=== PATIENT | female | born 1990 | race Caucasian/White ===

== ENCOUNTER 2019-04-08 09:05 | Inpatient (IN) | payer MEDICAID, SELFPAY ==
--- NOTE | 2019-04-03 12:31 | PCM.HP.BLA ---
History and Physical Date of Admission: 04/08/19 Monica Ramírez Griggs Physician [facility] H&P Signed Encounter Date: 04/03/2019 Expand All Collapse All Hide copied text Hover for details Template added by Monica Ramírez Griggs at 04/03/2019 12:12 PM Added by Monica Ramírez Griggs at 04/03/2019 12:12 PM Template added by Monica Ramírez Griggs at 04/03/2019 12:12 PM Template added by Monica Ramírez Griggs at 04/03/2019 12:12 PM Template added by Monica Ramírez Griggs at 04/03/2019 12:12 PM Template added by Monica Ramírez Griggs at 04/03/2019 12:12 PM Template added by Monica Ramírez Griggs at 04/03/2019 12:12 PM Template added by Monica Ramírez Griggs at 04/03/2019 12:12 PM Added by Monica Ramírez Griggs at 04/03/2019 12:12 PM Added by Monica Ramírez Griggs at 04/03/2019 12:12 PM Added by Monica Ramírez Griggs at 04/03/2019 12:12 PM Added by Monica Ramírez Griggs at 04/03/2019 12:12 PM Template added by Monica Ramírez Griggs at 04/03/2019 12:12 PM Added by Monica Ramírez Griggs at 04/03/2019 12:12 PM Added by Monica Ramírez Griggs at 04/03/2019 12:12 PM Added by Monica Ramírez Griggs at 04/03/2019 12:12 PM Added by Monica Ramírez Griggs at 04/03/2019 12:12 PM Added by Monica Ramírez Griggs at 04/03/2019 12:12 PM Added by Monica Ramírez Griggs at 04/03/2019 12:12 PM Added by Monica Ramírez Griggs at 04/03/2019 12:12 PM Added by Monica Griggs at 04/03/2019 12:12 PM Template added by Monica Griggs at 04/03/2019 12:12 PM Template added by Monica Griggs at 04/03/2019 12:12 PM Rita Olea is a 28 year old female who presents for?preop visit for repeat section. ?Patient declines tubal ligation at the time of section. ?Patient denies any concerns today. ?She denies any vaginal bleeding, leaking fluid. ?Patient reports good movement. ? PAST MEDICAL HISTORY PAST MEDICAL HISTORY Diagnosis Date ? ADD (attention deficit disorder) ? ? ADHD ? ? Anxiety ? ? Depression ? ? elevated TSH ? ? Trauma ? ? PAST SURGICAL HISTORY PAST SURGICAL HISTORY Procedure Laterality Date ? SECTION HX ? 2013 ? FAMILY HISTORY FAMILY HISTORY Problem Relation Age of Onset ? No Known Problems Mother ? ? No Known Problems Father ? ? No Known Problems Sister ? ? No Known Problems Brother ? ? Alzheimer's Disease Maternal Grandmother ? ? Heart Maternal Grandfather ? ? Depression Maternal Grandfather ? ? Diabetes Maternal Grandfather ? ? Psychiatry Maternal Grandfather ?OCD ? No Known Problems Paternal Grandmother ? ? No Known Problems Paternal Grandfather ? ? SOCIAL HISTORY Social History ? Tobacco Use ? Smoking status: Never Smoker ? Smokeless tobacco: Never Used Substance Use Topics ? Alcohol use: No ? Drug use: No ? CURRENT MEDICATIONS Current Outpatient Medications Medication Sig ? levothyroxine (SYNTHROID) 75 mcg tablet Take 1 tablet by mouth once daily. ? Gmacgkge-Rk-Mfp-Fe-FA ( VITAMIN) tab Take 1 tablet by mouth. ? No current facility-administered medications for this visit.? ? Allergies As of Date: 04/03/2019 Allergen ?Noted ?Reaction SEASONAL ALLERGIES ?09/06/2018 ?Other: See Comments ? Fully Assessed ?04/03/2019 ? ? REVIEW OF SYSTEMS Abdomen:?no pain? Bladder:?no dysuria?.. Expanded ROS:?GENERAL:?No weight loss, malaise or fevers Allergies and current medication updated:Yes ? EXAM:?BP 120/72 Wt 211 lb (95.7kg) LMP 07/12/2018? GENERAL:?pleasant,??female in no apparent distress HEENT:?Normocephalic and atraumatic NECK:?full range of motion DERMATOLOGY:?Normal, without lesions, non-icteric and non-hirsute ABDOMEN:?gravid, non tender NEURO:?alert and oriented x3,exam grossly non-focal EXTREMITIES:?normal ? ASSESSMENT AND PLAN:?? Encounter Diagnosis ? ? ICD-10-CM ? 1. Visit for screening Z36.9 URINE OB DIP B/O 2. 38 weeks gestation of Z3A.38 URINE OB DIP B/O ? 3. Consent signed today for repeat c/s with Dr. Rust on 04/08/19 4.?Pt has been counseled on risks/benefits and alternatives of surgery including but not limited to anesthesia, bleeding, infection, injury to pelvic structures including bowel, bladder, ureters and vessels. ?Pt wishes to proceed with surgery at this time. ? ? Monica Huerta MD ?
[2019-04-08] VITALS (17 sets, daily range): BP systolic 116–166; BP diastolic 65–107; PULSE 70–100; RESP 16–20; TEMP 36.1–37.1; O2SAT 96–100; BMI 41.4
[2019-04-08] MEDS: Lactated Ringers 1,000 ML 999 ML IV (09:25)
[2019-04-08 10:01] LABS: Absolute Lymphocyte Count 2.62 X10^3/uL (0.83-4.51); Absolute Neutrophil Count 6.9 X10^3/uL (2.0-7.7); Basophil# 0.03 X10^3/uL; Basophil% 0.3 % (0-1); Eosinophil# 0.19 X10^3/uL; Eosinophils% 1.8 % (0-5); Hematocrit 36.3 % (37-47); Hemoglobin 12.1 g/dL (12.0-15.0); Lymphocyte # 2.62 X10^3/ul (4.0); Lymphocyte % 24.9 % (19-41); Mean Corp Hgb Conc 33.3 g/dL (32-36); Mean Corpuscular Hgb 29.1 pg (27.0-32.0); Mean Corpuscular Volume 87.3 fL (81-99); Mean Platelet Vol. 12.5 fl (6.2-12.0); Monocyte# 0.78 X10^3/uL; Monocyte% 7.4 % (0-10); NRBC Flagged by Analyzer 0 % (0-5); Neutrophil # 6.85 X10^3/uL (2.7-7.7); Neutrophil % 65.2 % (47-70); POSITIVE COUNT YES; Platelet Count 225 K/mm3 (150-450); RBC Distribution Width CV 12.4 % (11.6-14.6); Red Blood Count 4.16 M/mm3 (4.2-5.4); White Blood Count 10.5 K/mm3 (4.4-11.0)
[2019-04-08 10:08] LABS: Differential Indicated SCAN CRITERIA MET
[2019-04-08 10:26] LABS: Platelet Estimate ADEQUATE (ADEQ); Platelet Morphology LARGE
[2019-04-08] MEDS: Lactated Ringers 1,000 ML 150 ML IV (10:47)
[2019-04-08] MEDS: Sodium Citrate/Citric Acid 30 ML UDC PO (12:11)
[2019-04-08] MEDS: Cefazolin 2 GM in 0.9% Normal Saline 100 ML IV (12:18)
--- NOTE | 2019-04-08 13:32 | PCM.OPRPT ---
Problem List (1) 39 weeks gestation of Status: Acute (2) History of delivery Status: Acute Report of Operation Date of Procedure: 04/08/19 Pre-Operative Diagnosis: 39 week gestation, history of prior section Post-Operative Diagnosis: As above Surgery/Procedure Performed:: RLTCS via pfannenstiel incision Description of Surgical Findings:: Normal-appearing uterus, bilateral fallopian tubes, bilateral ovaries. Viable in cephalic presentation. Clear fluid. Intact and normal-appearing placenta with a three-vessel cord. Moderate amount of adhesions of the bladder to the peritoneum as well as to the anterior surface of the uterus. Other than the bladder adhesions, very minimal to no adhesions. Type of Anesthesia:: Spinal Special Medications: None Specimen's removed: Placenta Drains: Pederson Estimated Blood Loss (mL): 700 Fluids Replaced: See I/O Description of Procedure: Patient was taken to the operating room where spinal anesthesia was found to be adequate. She was prepped and draped in the usual sterile fashion in dorsal position with leftward tilt. A Pfannenstiel skin incision was made with a scalpel and this incision was carried to the down to the underlying layer of fascia. The fascia was incised in the midline and extended laterally. The fascia was then dissected off of the rectus muscles with both blunt and sharp dissection. The peritoneum was entered carefully with sharp dissection. The peritoneum was extended with good visualization of the bladder. The bladder was noted to be densely adhered to the anterior surface of the uterus and to the peritoneum. A low transverse incision was made on the uterus. Membranes were ruptured for clear fluid. was delivered in vertex presentation with use of a vacuum, as the was unable to be delivered without the vacuum. The vacuum was applied and used with very gentle traction for one pull to deliver the head, and then the vacuum was released and removed. The body of the infant was delivered without force or delay. Cord was clamped and cut after 60 sec delay. was handed off to the nursery staff. The placenta was delivered with manual extraction and noted to be normal and intact. The uterus was exteriorized from the abdomen. The uterus was cleared of all clot and debris. The uterus was closed in a running locked fashion using Vicryl. Several additional [id number]-wx-[id number] sutures were placed for hemostasis. Normal bilateral adnexa were noted. The uterus was then placed back into the abdomen. Again hemostasis was noted. The peritoneum was closed in a running fashion with Vicryl. The fascia was closed in a running fashion with Vicryl. The subcutaneous space was irrigated. Subcutaneous space was made hemostatic using the Bovie cautery. The subcutaneous space was then closed off with Vicryl in a running fashion. The skin was closed in subcuticular fashion. Instrument counts were correct and patient was taken to the recovery room in stable condition. Grafts/Implants Used: None - Complications None - Admit VTE Documentation VTE Present on Admission: No VTE Mechan Device Prophylaxis: SCD's Delivery Classification: Scheduled Gestational age: 39 weeks Type of Anesthesia:: Spinal Indications for : Repeat Elective Amniotic Membrane Rupture Type: Artificial Amniotic Fluid Description: Clear Drain: Pederson to straight drain Cord Entanglement: None Cord Vessel Description: 3 Vessels Delayed cord clamping: Yes
[2019-04-08] MEDS: Oxytocin 30 units/NS 500 ml 30 UNITS/500 ML IV.SOLN 167 UNITS IV (13:58)
[2019-04-08] MEDS: Lactated Ringers 1,000 ML 100 ML IV (17:04)
[2019-04-08] MEDS: Ondansetron 4 MG/2 ML Vial IV (17:21)
[2019-04-08] MEDS: Ketorolac 30 MG/ML Syringe IV (19:57)
[2019-04-09] VITALS (12 sets, daily range): BP systolic 119–141; BP diastolic 63–86; PULSE 70–110; RESP 16–18; TEMP 36.7–37.1; O2SAT 96–99
[2019-04-09] MEDS: Lactated Ringers 1,000 ML 100 ML IV (01:47)
[2019-04-09] MEDS: Ketorolac 30 MG/ML Syringe IV ×2 (01:48→07:48)
[2019-04-09 05:33] LABS: Hematocrit 29.5 % (37-47); Hemoglobin 9.8 g/dL (12.0-15.0); Mean Corp Hgb Conc 33.2 g/dL (32-36); Mean Corpuscular Hgb 29.7 pg (27.0-32.0); Mean Corpuscular Volume 89.4 fL (81-99); Mean Platelet Vol. 11.7 fl (6.2-12.0); Platelet Count 177 K/mm3 (150-450); RBC Distribution Width CV 12.3 % (11.6-14.6); RBC Distribution Width SD 39.6 fl (35.1-43.9); White Blood Count 9.8 K/mm3 (4.4-11.0)
[2019-04-09] MEDS: Levothyroxine 75 MCG Tablet PO (06:24)
[2019-04-09] MEDS: 0.9% Saline Lock 10 ML Syringe IV ×2 (07:48→14:06)
[2019-04-09] MEDS: Enoxaparin 40 MG/0.4 ML Syringe SC (12:53)
--- NOTE | 2019-04-09 13:58 | PCM.PN.OB ---
Patient Problems: Active and Suspected Problems 39 weeks gestation of (Acute) History of delivery (Acute) Subjective: Pain well controlled, average lochia. Tolerating regular diet. No nausea or vomiting. - Physical Exam Vitals/I&O's: Vital Signs Temp Pulse Resp BP Pulse Ox 98.7 F 90 16 141/86 H 96 04/09/19 11:44 04/09/19 11:44 04/09/19 11:44 04/09/19 11:44 04/09/19 11:44 Oxygen Delivery Method Room Air Weight: 96.218 kg Body Mass Index (BMI) 41.4 Intake and Output for Last 24 Hours 04/07/19 04/08/19 04/09/19 23:59 23:59 23:59 Intake Total 2832.93 / 2832.93 2276.67 / 2276.67 Output Total 500 / 500 1000 / 1000 Balance 2332.93 / 2332.93 1276.67 / 1276.67 General: Alert, Cooperative, No apparent distress Abdomen: Soft, Non-Distended, Obese, Tender - Appropriately Extremities: Edema - 1+ Skin: Incision - The bandage is clean dry and intact Laboratory Results 04/09/19 05:15: WBC 9.8, RBC 3.30 L, Hgb 9.8 L, Hct 29.5 L, MCV 89.4, MCH 29.7, MCHC 33.2, RDW Std Deviation 39.6, RDW Coeff of Jacquelyn 12.3, Plt Count 177, MPV 11.7 Current Medications Acetaminophen (Tylenol) 1,000 mg PO Q8H PRN PRN Reason: Pain Score 1-3/10 Bisacodyl (Dulcolax) 10 mg RECTAL UD PRN PRN Reason: If no BM Enoxaparin Sodium (Lovenox) 40 mg SC DAILY@1300 [facility] Last Admin: 04/09/19 12:53 Dose: 40 mg Documented by: Hydrocortisone (Hytone) 1 applic TOPICAL TID PRN PRN; Protocol PRN Reason: Discomfort Naloxone HCl 4 mg/ Dextrose 504 mls @ 0 mls/hr IV .Q0M PRN; Protocol PRN Reason: Respiratory depression Ketorolac Tromethamine (Toradol) 30 mg IV Q6H FOREIGN Stop: 04/10/19 14:01 Last Admin: 04/09/19 07:48 Dose: 30 mg Documented by: Levothyroxine Sodium (Synthroid) 75 mcg PO DAILY@0600 [facility] Last Admin: 04/09/19 06:24 Dose: 75 mcg Documented by: Methylergonovine Maleate (Methergine) 0.2 mg IM X1 PRN PRN Reason: Uterine Atony Naloxone HCl (Narcan) 0.02 mg IV Q1M PRN PRN Reason: RR <10 and pt unresponsive Ondansetron HCl (Zofran) 4 mg IV Q4H PRN PRN PRN Reason: Nausea Last Admin: 04/08/19 17:21 Dose: 4 mg Documented by: Ondansetron HCl (Zofran Odt) 4 mg PO Q4H PRN PRN PRN Reason: ITCHING Stop: 04/09/19 14:31 Oxycodone HCl (Oxyir) 5 - 10 mg PO Q4H PRN PRN PRN Reason: Pain Score 4-10/10 Prochlorperazine Edisylate (Compazine Iv) 10 mg IV Q6H PRN PRN PRN Reason: NAUSEA Senna/Docusate Sodium (Senokot-S, Ember-Colace) 0 tablet PO DAILY PRN PRN Reason: Constipation Simethicone (Mylicon) 80 mg PO PCHS PRN PRN Reason: Indigestion/stomach pain Sodium Chloride () 5 - 15 ml IV UD PRN PRN Reason: SALINE FLUSH Last Admin: 04/09/19 07:48 Dose: 10 ml Documented by: Medical Necessity - Tobacco Use Smoking Status: Never smoker Assessment/Plan All Active Problems 39 weeks gestation of (Acute) History of delivery (Acute) Postoperative day #1 status post repeat section. Patient is doing well. Routine care. Patient will likely elect to be discharged home tomorrow.
--- NOTE | 2019-04-09 15:46 | NURSING ---
pt.'s IV infiltrated and dc'd, 1400 toradol unable to be given, spoke to Dr. Delacruz ordered patient to continue pain control maintenance with aleve with oxycodone for breakthrough pain,
[2019-04-09] MEDS: Acetaminophen 500 MG Tablet 1000 MG PO (16:07)
[2019-04-09] MEDS: Naproxen 250 MG Tablet PO (19:42)
[2019-04-10 01:15] VITALS: BP 126/75; PULSE 85; RESP 18; TEMP 37.1
[2019-04-10] MEDS: Levothyroxine 75 MCG Tablet PO (05:39)
[2019-04-10] MEDS: Acetaminophen 500 MG Tablet 1000 MG PO (07:37)
[2019-04-10 07:57] VITALS: BP 126/82; PULSE 75; RESP 18; TEMP 37.1
--- NOTE | 2019-04-10 08:10 | PCM.PN.OB ---
Patient Problems: Active and Suspected Problems 39 weeks gestation of (Acute) History of delivery (Acute) Subjective: Pt doing well. Pain well controlled. No lightheadedness, dizziness, CP, SOB, leg pain. Lochia normal. Bottle feeding. Tolerating reg diet. No difficulty with urination - Physical Exam Vitals/I&O's: Vital Signs Temp Pulse Resp BP Pulse Ox 98.8 F 75 18 126/82 H 96 04/10/19 07:57 04/10/19 07:57 04/10/19 07:57 04/10/19 07:57 04/09/19 11:44 Oxygen Delivery Method Room Air Weight: 212 lb 2 oz Body Mass Index (BMI) 41.4 Intake and Output for Last 24 Hours 04/08/19 04/09/19 04/10/19 23:59 23:59 23:59 Intake Total 2832.93 / 2832.93 2276.67 / 2276.67 Output Total 500 / 500 1000 / 1000 Balance 2332.93 / 2332.93 1276.67 / 1276.67 General: Alert, No apparent distress HEENT: Atraumatic Lungs: - - No increased resp effort Abdomen: Soft, Non Tender, - - FF Extremities: No Calf Tenderness, Edema - Trace edema bilaterally Skin: No rashes Neurological: Neuro grossly intact Psych/Mental Status: Normal Affect, Appropriate Current Medications Acetaminophen (Tylenol) 1,000 mg PO Q8H PRN PRN Reason: Pain Score 1-3/10 Last Admin: 04/10/19 07:37 Dose: 1,000 mg Documented by: Bisacodyl (Dulcolax) 10 mg RECTAL UD PRN PRN Reason: If no BM Enoxaparin Sodium (Lovenox) 40 mg SC DAILY@1300 [facility] Last Admin: 04/09/19 12:53 Dose: 40 mg Documented by: Hydrocortisone (Hytone) 1 applic TOPICAL TID PRN PRN; Protocol PRN Reason: Discomfort Naloxone HCl 4 mg/ Dextrose 504 mls @ 0 mls/hr IV .Q0M PRN; Protocol PRN Reason: Respiratory depression Levothyroxine Sodium (Synthroid) 75 mcg PO DAILY@0600 [facility] Last Admin: 04/10/19 05:39 Dose: 75 mcg Documented by: Methylergonovine Maleate (Methergine) 0.2 mg IM X1 PRN PRN Reason: Uterine Atony Naloxone HCl (Narcan) 0.02 mg IV Q1M PRN PRN Reason: RR <10 and pt unresponsive Naproxen (Naprosyn) 250 - 500 mg PO Q6H PRN PRN PRN Reason: PAIN 1-3 Last Admin: 04/09/19 19:42 Dose: 500 mg Documented by: Ondansetron HCl (Zofran) 4 mg IV Q4H PRN PRN PRN Reason: Nausea Last Admin: 04/08/19 17:21 Dose: 4 mg Documented by: Oxycodone HCl (Oxyir) 5 - 10 mg PO Q4H PRN PRN PRN Reason: Pain Score 4-10/10 Prochlorperazine Edisylate (Compazine Iv) 10 mg IV Q6H PRN PRN PRN Reason: NAUSEA Senna/Docusate Sodium (Senokot-S, Ember-Colace) 0 tablet PO DAILY PRN PRN Reason: Constipation Simethicone (Mylicon) 80 mg PO PCHS PRN PRN Reason: Indigestion/stomach pain Sodium Chloride () 5 - 15 ml IV UD PRN PRN Reason: SALINE FLUSH Last Admin: 04/09/19 14:06 Dose: 10 ml Documented by: Medical Necessity - Tobacco Use Smoking Status: Never smoker Assessment/Plan All Active Problems 39 weeks gestation of (Acute) History of delivery (Acute) POD#2 s/p RLTCS - Pt doing well and requests to go home - Bottle feeding - D/c home w/ follow up in office next week
--- NOTE | 2019-04-10 08:14 | DCINST_ITS ---
Discharge Diet: No Restrictions Discharge Activity: Return to Normal Activity, May Not Drive, May Shower May resume sexual activity in: 6 weeks Weight Bearing Status: Weight bearing as tolerated Lifting Restrictions: No lifting greater than 20 pounds Call your doctor if your incision/area has: Sudden Increased Bleeding, Increased Pain/ Swelling, Increased Redness, Foul Smelling Discharge, Swelling at the incision site Call your doctor if you observe: Fever of 101 or Higher, Inability to urinate, Inability to have a bowel movement, Using more than one pad per hour, Shortness of breath, Dizziness, Fainting spells, Chest pain, Increased palpitations (irregular heartbeat), Calf discomfort, Uncontrolled pain Suture Line Care: Avoid Pulling/Pushing, Avoid Pinching/Bending Cleanse incision/area with: Soap & Water Instructions: After a Additional Instructions: If you experience any of the following, contact your healthcare provider. * Bleeding that soaks a pad every hour for 2 hours * Fever 100.4 or higher * Unrelieved incision or abdominal pain * Swelling, redness, discharge or bleeding from your incision or episiotomy site * Your incision begins to separate * Problems urinating (including inability to urinate or burning while urinating). * Visual changes * Severe headache * Flu-like symptoms * Pain or redness in one of both of your breasts * Pain, warmth, tenderness or swelling in your legs, especially the calf area * Frequent nausea and vomiting * Symptoms of depression or anxiety If you experience any of the following, call 911 or go to the nearest Emergency Room. * Chest pain * Problems breathing * Seizure activity * Partial or complete paralysis of a body part, slurred speech, weakness or drooping of the face, or a sudden inability to walk or hold your balance Allergies/Adverse Reactions: Allergies No Known Allergies Allergy (Verified 04/08/19 09:50) Medications to take at Discharge Levothyroxine [Synthroid] 75 mcg PO DAILY 04/08/19 Vits [Prenatabs FA] 1 tab PO DAILY 04/08/19 Oxycodone HCl/Acetaminophen [Percocet 5/325] 1 tab PO Q6H PRN PRN 7 Days #15 tab 04/10/19 The following prescriptions were given: Oxycodone HCl/Acetaminophen [Percocet 5/325] 1 tab PO Q6H PRN PRN 7 Days #15 tab PRN Reason: Pain Score 6-10/10 Prescription Printed Follow-Up: Call to make an appointment with your doctor for an incision check in 1-2 weeks. You will also need a 6 week post- follow up appointment. Test results from this visit will be discussed in further detail at your follow- up appointment, if applicable. When: 1 week for incision check Primary Care Physician: Care Physician,No Primary [Primary Care Provider] -
--- NOTE | 2019-04-10 08:15 | PCM.DC.SUM ---
Discharge Date and Diagnosis - Problem List Patient Problems: Active and Suspected Problems 39 weeks gestation of (Acute) History of delivery (Acute) Date of Admission: 04/08/19 Date of Discharge: 04/10/19 - Primary Discharge Diagnosis Active and Suspected Problems 39 weeks gestation of (Acute) History of delivery (Acute) Hospital Course and Treatment Operations: - - repeat section Summary of Care Provided: The patient is a 28 year old F who presented for scheduled repeat section. See operative note for details of section. Postoperatively her pain was controlled, she was tolerating a regular diet, was ambulating without difficulty, she was voiding without difficulty. She was bottlefeeding. She was discharged home on postoperative day 2 per her request in good condition. Patient Problems: Active and Suspected Problems 39 weeks gestation of (Acute) History of delivery (Acute) - Physical Exam Vitals/I&O's: Vital Signs Temp Pulse Resp BP Pulse Ox 98.8 F 75 18 126/82 H 96 04/10/19 07:57 04/10/19 07:57 04/10/19 07:57 04/10/19 07:57 04/09/19 11:44 Oxygen Delivery Method Room Air Weight: 212 lb 2 oz Body Mass Index (BMI) 41.4 Intake and Output for Last 24 Hours 04/08/19 04/09/19 04/10/19 23:59 23:59 23:59 Intake Total 2832.93 / 2832.93 2276.67 / 2276.67 Output Total 500 / 500 1000 / 1000 Balance 2332.93 / 2332.93 1276.67 / 1276.67 Current Medications Acetaminophen (Tylenol) 1,000 mg PO Q8H PRN PRN Reason: Pain Score 1-3/10 Last Admin: 04/10/19 07:37 Dose: 1,000 mg Documented by: Bisacodyl (Dulcolax) 10 mg RECTAL UD PRN PRN Reason: If no BM Enoxaparin Sodium (Lovenox) 40 mg SC DAILY@1300 [facility] Last Admin: 04/09/19 12:53 Dose: 40 mg Documented by: Hydrocortisone (Hytone) 1 applic TOPICAL TID PRN PRN; Protocol PRN Reason: Discomfort Naloxone HCl 4 mg/ Dextrose 504 mls @ 0 mls/hr IV .Q0M PRN; Protocol PRN Reason: Respiratory depression Levothyroxine Sodium (Synthroid) 75 mcg PO DAILY@0600 [facility] Last Admin: 04/10/19 05:39 Dose: 75 mcg Documented by: Methylergonovine Maleate (Methergine) 0.2 mg IM X1 PRN PRN Reason: Uterine Atony Naloxone HCl (Narcan) 0.02 mg IV Q1M PRN PRN Reason: RR <10 and pt unresponsive Naproxen (Naprosyn) 250 - 500 mg PO Q6H PRN PRN PRN Reason: PAIN 1-3 Last Admin: 04/09/19 19:42 Dose: 500 mg Documented by: Ondansetron HCl (Zofran) 4 mg IV Q4H PRN PRN PRN Reason: Nausea Last Admin: 04/08/19 17:21 Dose: 4 mg Documented by: Oxycodone HCl (Oxyir) 5 - 10 mg PO Q4H PRN PRN PRN Reason: Pain Score 4-10/10 Prochlorperazine Edisylate (Compazine Iv) 10 mg IV Q6H PRN PRN PRN Reason: NAUSEA Senna/Docusate Sodium (Senokot-S, Ember-Colace) 0 tablet PO DAILY PRN PRN Reason: Constipation Simethicone (Mylicon) 80 mg PO PCHS PRN PRN Reason: Indigestion/stomach pain Sodium Chloride () 5 - 15 ml IV UD PRN PRN Reason: SALINE FLUSH Last Admin: 04/09/19 14:06 Dose: 10 ml Documented by: Discharge Diet: No Restrictions Discharge Activity: Return to Normal Activity, May Not Drive, May Shower May resume sexual activity in: 6 weeks Weight Bearing Status: Weight bearing as tolerated Call your doctor if your incision/area has: Sudden Increased Bleeding, Increased Pain/ Swelling, Increased Redness, Foul Smelling Discharge, Swelling at the incision site Call your doctor if you observe: Fever of 101 or Higher, Inability to urinate, Inability to have a bowel movement, Using more than one pad per hour, Shortness of breath, Dizziness, Fainting spells, Chest pain, Increased palpitations (irregular heartbeat), Calf discomfort, Uncontrolled pain Suture Line Care: Avoid Pulling/Pushing, Avoid Pinching/Bending Cleanse incision/area with: Soap & Water Home Medications: Medications to take at Discharge Levothyroxine [Synthroid] 75 mcg PO DAILY 04/08/19 Vits [Prenatabs FA] 1 tab PO DAILY 04/08/19 Oxycodone HCl/Acetaminophen [Percocet 5/325] 1 tab PO Q6H PRN PRN 7 Days #15 tab 04/10/19 Following Prescrptions Were Given to Patient: Oxycodone HCl/Acetaminophen [Percocet 5/325] 1 tab PO Q6H PRN PRN 7 Days #15 tab PRN Reason: Pain Score 6-10/10 Prescription Printed Primary Care Physician: Care Physician,No Primary [Primary Care Provider] - When: 1 week for incision check Patient Instructions: After a Medical Necessity - Tobacco Use Smoking Status: Never smoker Meaningful Use Info Meaningful Use Diagnoses (Choose all that apply): None applicable
[2019-04-10 12:00] VITALS: BP 129/82; PULSE 72; RESP 18; TEMP 37; O2SAT 98
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
== END 2019-04-10 12:00 | disposition home or self-care (01) | DRG 540 ==
PROVIDERS: Admitting Provider Obstetrics & Gynecology; Referring Provider Obstetrics & Gynecology; Visit Provider Obstetrics & Gynecology
PROC: 10D00Z1 Extraction of Products of Conception, Low, Open Approach (ICD-10-PCS; CPT 59514; principal; 2019-04-08 11:45)
DX: O34.211 Maternal care for low transverse scar from previous cesarean delivery (principal); Z3A.39 39 weeks gestation of pregnancy; Z37.0 Single live birth
CPT/HCPCS: 85025; 85027; 86850; 86900; 86901; 99218; 99251; J7120; A4216; G0378; G0463; J2405